=== PATIENT | male | born 1995 | race Caucasian/White ===

== ENCOUNTER 2017-04-09 00:43 | Emergency (ER) | payer MEDICAID ==
[2010-08-30 01:51] VITALS: BMI 19.6
== END 2017-04-09 01:40 | disposition home or self-care (01) ==
LOC: D.ER 00:43
DX: S90.02XA Contusion of left ankle, initial encounter (principal); S90.32XA Contusion of left foot, initial encounter; W22.8XXA Striking against or struck by other objects, initial encounter; Y93.89 Activity, other specified; Y92.019 Unspecified place in single-family (private) house as the place of occurrence of the external cause; G40.909 Epilepsy, unspecified, not intractable, without status epilepticus

== ENCOUNTER 2017-08-07 18:31 | Emergency (ER) | payer MEDICAID ==
[2010-08-30 01:51] VITALS: BMI 19.6
== END 2017-08-07 20:54 | disposition home or self-care (01) ==
LOC: D.ER 18:31
DX: J11.1 Influenza due to unidentified influenza virus with other respiratory manifestations (principal)

== ENCOUNTER 2018-10-19 17:11 | Emergency (ER) | payer MEDICAID ==
[~2018-10-19] VITALS: Ht 170.2 cm; Wt 68.2 kg
[2018-10-19 17:16] VITALS: BP 128/72; Ht 170.2 cm; Wt 68.2 kg
[2018-10-19] MEDS ORDERED: TESSALON PERLE100 MG PO (18:44)
[2018-10-19] MEDS ORDERED: TAMIFLU75 MG PO (18:44)
== END 2018-10-19 19:10 | disposition home or self-care (01) ==
LOC: D.ER 17:11
DX: J11.1 Influenza due to unidentified influenza virus with other respiratory manifestations (principal); R05 Cough; R50.9 Fever, unspecified; R09.89 Other specified symptoms and signs involving the circulatory and respiratory systems

== ENCOUNTER 2019-02-24 23:24 | Emergency (ER) | payer MEDICAID ==
[~2019-02-24] VITALS: Ht 170.2 cm; Wt 59.0 kg
[~2019-02-24 23:24] MED LIST: TAMIFLU75 MG PO; TESSALON PERLE100 MG PO
[2019-02-24 23:30] VITALS: Ht 170.2 cm; Wt 59.0 kg
[2019-02-24 23:55] LABS: HEMATOCRIT 41.1 % (42.0-54.0); HEMOGLOBIN 14.2 g/dL (13.5-17.5); LYMPHOCYTES 37.6 % (15-50); MCH 30.5 pg (26.0-34.0); MCHC 34.5 g/dL (31.0-37.0); MCV 88.2 fL (80.0-100.0); MEAN PLATELET VOLUME 9.8 fL (7.4-10.4); NEUTROPHILS 54.4 % (40-80); PLATELET COUNT 237 10x3/uL (130-400); RBC 4.66 10x6/uL (4.20-6.10); RDW 12.9 % (11.5-14.5); WBC 10.7 10x3/uL (4.8-10.8)
[2019-02-25 00:08] LABS: ALBUMIN 3.8 g/dL (3.4-5.0); ALKALINE PHOSPHATASE 99 U/L (46-116); ALT (SGPT) 25 U/L (10-68); BILIRUBIN - TOTAL 0.11 mg/dL (0.2-1.3); CALC OSMOLALITY 282 mosm/kg (275-300); CALCIUM 8.8 mg/dL (8.5-10.1); CHLORIDE - SERUM 104 mmol/L (98-107); CREATININE - SERUM 0.8 mg/dL (0.6-1.3); GLUCOSE 111 mg/dL (74-106); PROTEIN - SERUM 6.9 g/dL (6.4-8.2); SODIUM 142 mmol/L (136-145); UREA NITROGEN 11 mg/dL (7-18); eGFR NON AFRICAN AMERICAN > 90 mL/min (90-120)
[2019-02-25] MEDS ORDERED: HYDROCODON-ACE1 EAC7 PO (00:34)
[2019-02-25] MEDS ORDERED: KEFLEX500 MG PO (00:34)
[2019-02-25 00:57] VITALS: BP 119/71
== END 2019-02-25 00:57 | disposition home or self-care (01) ==
LOC: D.ER 23:24
PROVIDERS: Family Medicine
DX: T22.412A Corrosion of unspecified degree of left forearm, initial encounter (principal); Y93.89 Activity, other specified; Y92.89 Other specified places as the place of occurrence of the external cause

== ENCOUNTER 2019-04-14 19:38 | Emergency (ER) | payer MEDICAID ==
[~2019-04-14] VITALS: Ht 170.2 cm; Wt 68.2 kg
[~2019-04-14 19:38] MED LIST changes: +HYDROCODON-ACE1 EAC7 PO; +KEFLEX500 MG PO
[2019-04-14 19:42] VITALS: Ht 170.2 cm; Wt 68.2 kg
[2019-04-14 19:56] LABS: HEMATOCRIT 40.8 % (42.0-54.0); HEMOGLOBIN 13.8 g/dL (13.5-17.5); LYMPHOCYTES 34.6 % (15-50); MCH 30.6 pg (26.0-34.0); MCHC 33.8 g/dL (31.0-37.0); MCV 90.5 fL (80.0-100.0); MEAN PLATELET VOLUME 9.9 fL (7.4-10.4); NEUTROPHILS 58.7 % (40-80); PLATELET COUNT 197 10x3/uL (130-400); RBC 4.51 10x6/uL (4.20-6.10); RDW 13.6 % (11.5-14.5)
[2019-04-14 19:59] LABS: APPEARANCE CLOUDY (CLEAR); BILIRUBIN NEGATIVE (NEGATIVE); COLOR YELLOW (YELLOW); GLUCOSE NEGATIVE (NEGATIVE); KETONE NEGATIVE (NEGATIVE); NITRITE NEGATIVE (NEGATIVE); PROTEIN TRACE mg/dL (NEGATIVE); SPECIFIC GRAVITY 1.015 (1.005-1.020); UROBILINOGEN NORMAL (NORMAL)
[2019-04-14 20:00] LABS: WHITE CELLS - URINE 0-5 /hpf (0-5)
[2019-04-14 20:02] LABS: AMORPHOUS SEDIMENT >1+ /lpf (NONE SEEN); BACTERIA FEW /hpf (NONE SEEN)
[2019-04-14 20:23] LABS: ALBUMIN 3.7 g/dL (3.4-5.0); ALKALINE PHOSPHATASE 88 U/L (46-116); ALT (SGPT) 22 U/L (10-68); BILIRUBIN - TOTAL 0.38 mg/dL (0.2-1.3); CALC OSMOLALITY 277 mosm/kg (275-300); CALCIUM 8.6 mg/dL (8.5-10.1); CHLORIDE - SERUM 102 mmol/L (98-107); CREATININE - SERUM 0.9 mg/dL (0.6-1.3); GLUCOSE 81 mg/dL (74-106); POTASSIUM - SERUM 4.2 mmol/L (3.5-5.1); PROTEIN - SERUM 6.8 g/dL (6.4-8.2); SODIUM 140 mmol/L (136-145); UREA NITROGEN 12 mg/dL (7-18); eGFR NON AFRICAN AMERICAN > 90 mL/min (90-120)
[2019-04-14] MEDS ORDERED: TORADOL10 MG PO (21:55)
[2019-04-14] MEDS ORDERED: FLOMAX0.4 MG PO (21:55)
[2019-04-14] MEDS ORDERED: ZOFRAN8 MG PO (21:55)
[2019-04-14 22:19] VITALS: BP 118/78
== END 2019-04-14 22:20 | disposition home or self-care (01) ==
LOC: D.ER 19:38
PROVIDERS: Family Medicine
DX: R10.9 Unspecified abdominal pain (principal); N20.0 Calculus of kidney

== ENCOUNTER 2020-01-15 19:02 | Emergency (ER) | payer MEDICAID ==
[~2020-01-15] VITALS: Ht 170.2 cm; Wt 63.6 kg
[~2020-01-15 19:02] MED LIST changes: +FLOMAX0.4 MG PO; +TORADOL10 MG PO; +ZOFRAN8 MG PO
[2020-01-15 19:26] VITALS: Ht 170.2 cm; Wt 63.6 kg
[2020-01-15 19:44] LABS: BILIRUBIN NEGATIVE (NEGATIVE); GLUCOSE NEGATIVE (NEGATIVE); KETONE NEGATIVE (NEGATIVE); NITRITE NEGATIVE (NEGATIVE); UROBILINOGEN NORMAL (NORMAL)
[2020-01-15 19:48] LABS: UDS - AMPHET POSITIVE QUAL (NEGATIVE); UDS - BARB NEGATIVE QUAL (NEGATIVE); UDS - BENZO NEGATIVE QUAL (NEGATIVE); UDS - COCAINE NEGATIVE QUAL (NEGATIVE); UDS - OPIATE NEGATIVE QUAL (NEGATIVE); UDS - PCP NEGATIVE QUAL (NEGATIVE); UDS - THC POSITIVE QUAL (NEGATIVE)
[2020-01-15 19:50] LABS: BASOPHILS 0.3 % (0-2); EOSINOPHILS 2.4 % (0-7); HEMATOCRIT 46.5 % (42.0-54.0); HEMOGLOBIN 15.6 g/dL (13.5-17.5); IMMATURE GRANULOCYTES 0.3 % (0-5); LYMPHOCYTES 21.5 % (15-50); MCHC 33.5 g/dL (31.0-37.0); MCV 92.3 fL (80.0-100.0); MEAN PLATELET VOLUME 10.1 fL (7.4-10.4); MONOCYTES 6.2 % (2-11); NEUTROPHILS 69.3 % (40-80); RBC 5.04 10x6/uL (4.20-6.10); RDW 13.3 % (11.5-14.5); WBC 11.1 10x3/uL (4.8-10.8)
[2020-01-15 19:53] LABS: PLATELET COUNT 269 10x3/uL (130-400)
[2020-01-15 20:08] LABS: CALC OSMOLALITY 277 mosm/kg (275-300); CALCIUM 9.2 mg/dL (8.5-10.1); CARBON DIOXIDE 31.3 mmol/L (21.0-32.0); CHLORIDE - SERUM 104 mmol/L (98-107); GLUCOSE 83 mg/dL (74-106); POTASSIUM - SERUM 4.3 mmol/L (3.5-5.1); SODIUM 139 mmol/L (136-145); UREA NITROGEN 15 mg/dL (7-18); eGFR NON AFRICAN AMERICAN > 90 mL/min (90-120)
[2020-01-15 20:13] LABS: ALKALINE PHOSPHATASE 101 U/L (30-120); ALT (SGPT) 25 U/L (10-68); PROTEIN - SERUM 7.4 g/dL (6.4-8.2)
--- NOTE | 2020-01-15 21:03 | NUR ---
DR. STERN REVIEWED BEHAVIOR AND ASSESSMENT TO BE LOW RISK. NO FURTHER ORDERS INDICATED. NOTIFIED CHARGE NURSE AND ATTENDING IN REGARDS TO ASSESSMENT FINDINGS. RESOURCES GIVEN TO PATIENT.
[2020-01-15 21:17] VITALS: BP 119/70
== END 2020-01-15 21:17 | disposition home or self-care (01) ==
LOC: D.ER 19:02
PROVIDERS: Family Medicine
DX: R45.851 Suicidal ideations (principal); J45.909 Unspecified asthma, uncomplicated